=== PATIENT | female | born 1965 | race African-American/Black ===

== ENCOUNTER 2018-03-25 12:44 | Inpatient (IN) | payer OTHER ==
[2018-03-25] MEDS ORDERED: ACETAMINOPHEN 325 MG TABLET ONE (12:52)
[2018-03-25] MEDS ORDERED: NA CHLORIDE 0.9% 1,000 ML ONE ×2 (12:53→15:51)
[2018-03-25] MEDS ORDERED: ONDANSETRON 4 MG/2 ML VIAL ONE (12:53)
[2018-03-25 13:51] LABS: Bicarbonate 26 mEq/L (21-31); Glucose Level 122 mg/dL (65-120); Lipase 19 U/L (22-51); Potassium 3.9 mEq/L (3.6-5.0); Sodium Level 138 mEq/L (135-145)
[2018-03-25 13:56] LABS: ALT/SGPT 40 IU/L (10-60); AST/SGOT 42 IU/L (10-42); Albumin 4.3 g/dL (3.2-5.5); Alkaline Phosphatase 75 IU/L (42-121); BUN Blood Urea Nitrogen 12 mg/dL (6-20); Bilirubin Direct 0.1 mg/dL (0-0.2); Bilirubin Total 0.5 mg/dL (0.3-1.2); Magnesium 1.8 mg/dL (1.8-2.5); Protein, Total 7.8 g/dL (6.0-8.3)
--- NOTE | 2018-03-25 13:58 | RAD REPORT ---
EXAM DESCRIPTION: Rhett Single View03/25/2018 1:06 pm CLINICAL HISTORY: Cough COMPARISON: 2016 FINDINGS: The lungs appear clear of acute infiltrate. The heart is normal size IMPRESSION: No acute abnormalities displayed
[2018-03-25 14:20] LABS: Absolute Lymphocytes (CBC) 2.9 K/uL (0.7-4.9); Absolute Monocytes 1.1 K/uL (0.1-1.3); Absolute Neutrophil 11.9 K/uL (1.8-8.0); Basophils % 0.5 % (0-1.3); Eosinophils % 0.7 % (0-4.4); Hematocrit 40.2 % (36.0-45.0); Lymphocytes % 17.9 % (15.3-44.8); MCH 27.3 pg (27.0-35.0); MCV 84.6 fL (80-100); Monocytes % 6.6 % (3.3-12.3); RBC Red Blood Cell Count 4.75 M/uL (3.86-4.86)
[2018-03-25 14:26] LABS: Protime INR 1.03
[2018-03-25 15:04] LABS: Urine Blood 2+ (NEG); Urine Glucose NEGATIVE (NEG); Urine Protein NEGATIVE (NEG); Urine Specific Gravity 1.015 (1.005-1.030)
--- NOTE | 2018-03-25 15:44 | RAD REPORT ---
EXAM DESCRIPTION: CT - Stone Protocol - 03/25/2018 3:34 pm CLINICAL HISTORY: Abdominal pain. COMPARISON: None. TECHNIQUE: Computed axial tomography of the abdomen pelvis was obtained without oral or IV contrast. Lack of IV and oral contrast limits evaluation of solid organs, bowel, and vessels. Coronal reformat marlee images were obtained and reviewed. All CT scans are performed using dose optimization technique as appropriate and may include automated exposure control or mA/KV adjustment according to patient size. FINDINGS: A renal calculus is not seen. An ureteral calculus is not noted. A bladder calculus is not present. The liver, spleen, pancreas and adrenals appear grossly normal Diverticula stem from the colon without evidence of diverticulitis. The appendix appears normal A small umbilical hernia is present IMPRESSION: Negative for a genitourinary calculus
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
[2018-03-25] MEDS ORDERED: CEFTRIAXONE/SWI 1gm 1 GM/10 ML SYR ONE (16:35)
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
[2018-03-25] MEDS ORDERED: ONDANSETRON 4 MG/2 ML VIAL IV PRN (18:13)
[2018-03-25] MEDS ORDERED: ACETAMINOPHEN 500 MG TAB PO PRN (18:13)
[2018-03-25 18:22] VITALS: BMI 27.2
[2018-03-25] MEDS: NA CHLORIDE 0.9% 1,000 ML IV SCH (18:35)
[2018-03-25] MEDS: ENOXAPARIN 40 MG/0.4 ML SQ SCH (20:38)
[2018-03-25] MEDS ORDERED: TEMAZEPAM 15 MG CAP PO PRN (20:55)
[2018-03-25] MEDS ORDERED: HYDROCODONE/APAP 10/325 TAB PO ONE (20:55)
[2018-03-25 21:10] LABS: Urine Appearance CLEAR; Urine Bilirubin NEGATIVE (NEG); Urine Blood 1+ (NEG); Urine Color YELLOW; Urine Glucose NEGATIVE (NEG); Urine Protein NEGATIVE (NEG); Urine Urobilinogen 0.2 mg/dL (0.2-1.0); Urine pH 7.5 (5.0-7.0)
[2018-03-25 21:12] LABS: Urine Microscopic Reflex ORDER UMIC
[2018-03-25 21:28] LABS: Urine Bacteria <20 /HPF (<20); Urine Culture Reflex Order NOT NEEDED
[2018-03-25 21:42] LABS: Barbiturates NEGATIVE; Benzodiazepines NEGATIVE; Cocaine NEGATIVE; METHAMPHETAM NEGATIVE; Opiates NEGATIVE; Phencyclidine NEGATIVE; THC Cannibis NEGATIVE
[2018-03-26] MEDS: NA CHLORIDE 0.9% 1,000 ML IV SCH ×4 (03:22→18:48)
[2018-03-26 05:45] LABS: Absolute Lymphocytes (CBC) 1.7 K/uL (0.7-4.9); Absolute Neutrophil 8.3 K/uL (1.8-8.0); Basophils % 0.4 % (0-1.3); Eosinophils % 0.1 % (0-4.4); Hematocrit 33.8 % (36.0-45.0); Lymphocytes % 15.4 % (15.3-44.8); MCH 27.6 pg (27.0-35.0); MPV 7.3 fL (7.6-11.3); Monocytes % 9.1 % (3.3-12.3); RBC Red Blood Cell Count 4.03 M/uL (3.86-4.86)
[2018-03-26 06:54] LABS: BUN Blood Urea Nitrogen 8 mg/dL (6-20); Bicarbonate 27 mEq/L (21-31); Glucose Level 114 mg/dL (65-120); Magnesium 1.7 mg/dL (1.8-2.5); Potassium 3.3 mEq/L (3.6-5.0); Sodium Level 139 mEq/L (135-145)
--- NOTE | 2018-03-26 06:58 | EKG ---
Test Date: 2018-03-25 Test Time: 12:49:14 Demo Coordinator: CODIE MEASUREMENT RESULTS: Intervals: Rate: 128 AR: 150 QRSD: 66 QT: 298 QTc: 435 Martin: P: 52 AR: 150 QRS: -9 T: 37 INTERPRETIVE STATEMENTS: Sinus tachycardia Otherwise normal ECG Compared to ECG 05/26/2016 14:36:02 Sinus rhythm no longer present Electronically Signed On 03-26-18 06:58:14 CDT by Dean Burns
[2018-03-26] MEDS: IBUPROFEN 400 MG TAB PO PRN ×2 (08:29→14:18)
[2018-03-26] MEDS: PANTOPRAZOLE 40MG TABLET PO SCH (08:29)
[2018-03-26] MEDS: ENOXAPARIN 40 MG/0.4 ML SQ SCH (08:30)
[2018-03-26] MEDS: CEFTRIAXONE/SWI 1gm 1 GM/10 ML SYR IVP SCH (08:31)
[2018-03-26] MEDS ORDERED: MAGNESIUM SULFATE 1 gm IVPB 1 GM/100 ML BAG IV ONE (09:00)
[2018-03-26] MEDS ORDERED: POTASSIUM CL SA 10 MEQ TAB PO ONE ×2 (09:00→18:00)
--- NOTE | 2018-03-26 10:59 | ECHO ---
HEIGHT: 5 ft 2 in WEIGHT: 149 lb 0 oz DATE OF STUDY: 03/26/[address]: Cole Newman DO 2-DIMENSIONAL: YES M.MODE: YES DOPPLER: YES COLOR FLOW: YES TDS: NO PORTABLE: NO DEFINITY: NO BUBBLE STUDY: YES DIAGNOSIS: FEVER/SEPSIS CARDIAC HISTORY: CATHERIZATION: NO SURGERY: NO PROSTHETIC VALVE: NO PACEMAKER: NO MEASUREMENTS (cm) DIASTOLIC (NORMALS) SYSTOLIC (NORMALS) IVSd 1.1 (0.6-1.2) LA Diam 3.7 (1.9-4.0) LVEF 68% LVIDd 3.4 (3.5-5.7) LVIDs 2.1 (2.0-3.5) %FS 37% LVPWd 1.4 (0.6-1.2) Ao Diam 2.8 (2.0-3.7) 2 DIMENSIONAL ASSESSMENT: RIGHT ATRIUM: NORMAL LEFT ATRIUM: HYPERMOBILE INTERATRIAL SEPTUM RIGHT VENTRICLE: NORMAL LEFT VENTRICLE: NORMAL TRICUSPID VALVE: NORMAL MITRAL VALVE: NORMAL PULMONIC VALVE: NORMAL AORTIC VALVE: NORMAL PERICARDIAL EFFUSION: NONE AORTIC ROOT: NORMAL LEFT VENTRICULAR WALL MOTION: NORMAL. DOPPLER/COLOR FLOW: TRACE OF TRICUSPID REGURGITATION. NORMAL RIGHT VENTRICULAR SYSTOLIC PRESSURE. COMMENTS: A VERY SMALL ATRIAL SEPTAL DEFECT OR PATENT FORAMEN OVALE IS PRESENT WITH RIGHT TO LEFT SHUNT OTHERWISE NORMAL 2D ECHO. TRACE OF TRICUSPID REGURGITATION. NORMAL RIGHT VENTRICULAR SYSTOLIC PRESSURE. TECHNOLOGIST: ITZ PIERCE
--- NOTE | 2018-03-26 11:35 | P.PN ---
Subjective Date of Service: 03/26/18 Primary Care Provider: None Chief Complaint: Fever, nausea and vomiting Subjective: Improving (Patient improved. Still with some fatigue. Fever noted. Patient did have some nausea this morning. Mild headache.) Physical Examination - Vital Signs Temperature: 99.8 F Blood Pressure: 137/76 Pulse: 88 Respirations: 18 Pulse Ox (%): 96 - Physical Exam General: Alert, In no apparent distress, Oriented x3, Cooperative, Other (No nuchal rigidity. No vision problems.) HEENT: Atraumatic Neck: Supple Respiratory: Clear to auscultation bilaterally, Normal air movement Cardiovascular: Normal pulses, Regular rate/rhythm Gastrointestinal: Normal bowel sounds, Soft and benign, Non-distended, No tenderness, No masses, No rebound, No guarding Musculoskeletal: No erythema, No tenderness, No warmth Integumentary: No tenderness/swelling, No erythema, No warmth, No cyanosis Neurological: Normal speech, Normal strength at 5/5 x4 extr, Normal tone, Normal affect - Studies Laboratory Data (last 24 hrs) 03/25/18 13:00: PT 12.2, INR 1.03 03/25/18 13:00: WBC 16.0 H, Hgb 13.0, Hct 40.2, Plt Count 317 03/25/18 13:00: B-Natriuretic Peptide 42 03/25/18 13:00: Sodium 138, Potassium 3.9, BUN 12, Creatinine 0.77, Glucose 122 H, Magnesium 1.8, Total Bilirubin 0.5, AST 42, ALT 40, Alkaline Phosphatase 75, Lipase 19 L Microbiology Data (last 24 hrs): 03/25/18 13:00 Nasopharnyx Influenza Type A Antigen Screen - Final 03/25/18 13:00 Nasopharnyx Influenza Type B Antigen Screen - Final Medications List Reviewed: Yes Assessment & Plan - Problems (Diagnosis) (1) Fever Onset Date: 03/26/18 Current Visit: Yes Status: Acute Plan: Etiology of fever and leukocytosis unknown, this is likely viral in nature. Suspect upper respiratory with gastroenteritis. Will provide medication for nausea. Blood cultures obtained. Await results. Patient on antibiotic therapy empirically. Will continue with IV fluids and electrolyte replacement. Echocardiogram shows normal ejection fraction. It did show a small atrial septal defect. This can be further monitored as an outpatient by Cardiology. Will ambulate patient. Will continue to monitor closely Qualifiers: Fever type: unspecified Qualified Code(s): R50.9 - Fever, unspecified (2) Nausea and vomiting Onset Date: 03/26/18 Current Visit: Yes Status: Acute Plan: Will continue with medication. Will continue as above. Qualifiers: Vomiting type: unspecified Vomiting Intractability: unspecified Qualified Code(s): R11.2 - Nausea with vomiting, unspecified (3) Dehydration Onset Date: 03/26/18 Current Visit: Yes Status: Acute Plan: Will continue with fluids and and replace electrolytes (4) Leukocytosis Onset Date: 03/26/18 Current Visit: Yes Status: Acute Plan: Improved. Chest x-ray unremarkable, CT abdomen unremarkable. Blood cultures obtained. Patient on antibiotic therapy empirically. This is likely viral in nature. Will continue to monitor closely. Continue IV fluids. Anticipate discharge once the patient is without fever for at least 24-48 hr. Qualifiers: Leukocytosis type: unspecified Qualified Code(s): D72.829 - Elevated white blood cell count, unspecified (5) Viral illness Current Visit: Yes Status: Acute Plan: Suspect viral illness. Will continue with above plan of care. (6) Atrial septal defect Current Visit: Yes Status: Chronic Plan: Patient found to have small atrial septal defect. This can be followed up as an outpatient by Cardiology. (7) Hypokalemia Current Visit: Yes Status: Acute Plan: Will continue monitor and replace appropriately. Replacement protocol in place. (8) Hypomagnesemia Current Visit: Yes Status: Acute Plan: Will continue to monitor and replace appropriately. Replacement protocol in place. Discharge Plan: Home Plan to discharge in: 48 Hours Time Spent Managing Pts Care (In Minutes): 55
[2018-03-27] MEDS: NA CHLORIDE 0.9% 1,000 ML IV SCH ×2 (02:13→05:45)
[2018-03-27 05:11] LABS: Absolute Neutrophil 4.6 K/uL (1.8-8.0); Basophils % 0.3 % (0-1.3); Hematocrit 32.8 % (36.0-45.0); Lymphocytes % 25.2 % (15.3-44.8); MCH 27.6 pg (27.0-35.0); MCV 84.4 fL (80-100); MPV 8.1 fL (7.6-11.3); Monocytes % 12.5 % (3.3-12.3); RBC Red Blood Cell Count 3.89 M/uL (3.86-4.86)
[2018-03-27 05:30] LABS: BUN Blood Urea Nitrogen 8 mg/dL (6-20); Bicarbonate 27 mEq/L (21-31); Glucose Level 92 mg/dL (65-120); Magnesium 1.9 mg/dL (1.8-2.5); Sodium Level 141 mEq/L (135-145)
[2018-03-27] MEDS: ENOXAPARIN 40 MG/0.4 ML SQ SCH (08:13)
[2018-03-27] MEDS: CEFTRIAXONE/SWI 1gm 1 GM/10 ML SYR IVP SCH (08:15)
[2018-03-27] MEDS: PANTOPRAZOLE 40MG TABLET PO SCH (08:15)
--- NOTE | 2018-03-27 10:00 | P.PN ---
Subjective Date of Service: 03/27/18 Primary Care Provider: None Chief Complaint: Fever, nausea and vomiting Subjective: Improving Physical Examination - Vital Signs Temperature: 97.5 F Blood Pressure: 151/74 Pulse: 78 Respirations: 18 Pulse Ox (%): 96 - Physical Exam General: Alert, In no apparent distress, Oriented x3, Cooperative HEENT: Atraumatic Neck: Supple Respiratory: Clear to auscultation bilaterally, Normal air movement Cardiovascular: Normal pulses, Regular rate/rhythm Gastrointestinal: Normal bowel sounds, Soft and benign, Non-distended, No tenderness, No masses, No rebound, No guarding Musculoskeletal: No erythema, No tenderness, No warmth Integumentary: No tenderness/swelling, No erythema, No warmth, No cyanosis Neurological: Normal speech, Normal strength at 5/5 x4 extr, Normal tone, Normal affect - Studies Medications List Reviewed: Yes Assessment & Plan - Problems (Diagnosis) (1) Fever Onset Date: 03/26/18 Current Visit: Yes Status: Acute Plan: Etiology of fever and leukocytosis unknown, this is likely viral in nature. No fever for over 24 hr. Suspect upper respiratory with gastroenteritis. Patient improved. Will continue with IV fluids. Will advance diet. So far blood cultures negative. Echocardiogram shows normal ejection fraction. It did show a small atrial septal defect. This can be further monitored as an outpatient by Cardiology. Will ambulate patient. Will continue to monitor closely. Possible discharge later today if much improved. Qualifiers: Fever type: unspecified Qualified Code(s): R50.9 - Fever, unspecified (2) Nausea and vomiting Onset Date: 03/26/18 Current Visit: Yes Status: Acute Plan: Will continue with medication. Will continue as above. Qualifiers: Vomiting type: unspecified Vomiting Intractability: unspecified Qualified Code(s): R11.2 - Nausea with vomiting, unspecified (3) Dehydration Onset Date: 03/26/18 Current Visit: Yes Status: Acute Plan: Will continue with fluids and and replace electrolytes (4) Leukocytosis Onset Date: 03/26/18 Current Visit: Yes Status: Acute Plan: Improved. Chest x-ray unremarkable, CT abdomen unremarkable. Blood cultures obtained. Patient on antibiotic therapy empirically. This is likely viral in nature. Will continue to monitor closely. Continue IV fluids. Anticipate discharge once the patient is without fever for at least 24-48 hr. Qualifiers: Leukocytosis type: unspecified Qualified Code(s): D72.829 - Elevated white blood cell count, unspecified (5) Viral illness Current Visit: Yes Status: Acute Plan: Suspect viral illness. Will continue with above plan of care. (6) Atrial septal defect Current Visit: Yes Status: Chronic Plan: Patient found to have small atrial septal defect. This can be followed up as an outpatient by Cardiology. (7) Hypokalemia Current Visit: Yes Status: Acute Plan: Will continue monitor and replace appropriately. Replacement protocol in place. (8) Hypomagnesemia Current Visit: Yes Status: Acute Plan: Will continue to monitor and replace appropriately. Replacement protocol in place. Discharge Plan: Home Plan to discharge in: 24 Hours Time Spent Managing Pts Care (In Minutes): 55
[2018-03-27 20:35] VITALS: O2SAT 99
[2018-03-27] MEDS: IBUPROFEN 400 MG TAB PO PRN (23:57)
[2018-03-28 06:36] LABS: Absolute Lymphocytes (CBC) 1.9 K/uL (0.7-4.9); Absolute Monocytes 0.7 K/uL (0.1-1.3); Absolute Neutrophil 3.3 K/uL (1.8-8.0); Basophils % 0.3 % (0-1.3); Eosinophils % 5.8 % (0-4.4); Hematocrit 35.6 % (36.0-45.0); Lymphocytes % 30.5 % (15.3-44.8); MCV 83.8 fL (80-100); MPV 7.8 fL (7.6-11.3); Monocytes % 11.7 % (3.3-12.3); RBC Red Blood Cell Count 4.26 M/uL (3.86-4.86)
[2018-03-28 06:46] LABS: BUN Blood Urea Nitrogen 11 mg/dL (6-20); Bicarbonate 31 mEq/L (21-31); Glucose Level 98 mg/dL (65-120); Magnesium 1.9 mg/dL (1.8-2.5); Potassium 4.1 mEq/L (3.6-5.0); Sodium Level 143 mEq/L (135-145)
[2018-03-28] MEDS ORDERED: AMLODIPINE 5 MG TAB PO SCH (09:00)
[2018-03-28] MEDS: PANTOPRAZOLE 40MG TABLET PO SCH (09:38)
[2018-03-28] MEDS: CEFTRIAXONE/SWI 1gm 1 GM/10 ML SYR IVP SCH (09:43)
[2018-03-28] MEDS: ENOXAPARIN 40 MG/0.4 ML SQ SCH (09:43)
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
[2018-03-28 11:44] VITALS: BP 146/98; TEMP 98.5
== END 2018-03-28 15:41 | disposition home or self-care (01) | DRG 866 ==
LOC: ER 12:44 → ERHOLD 16:06 → 4TH 17:37
PROVIDERS: ADMIT Family Medicine; ATTEND Family Medicine
DX: B34.9 Viral infection, unspecified (principal); Q21.1 Atrial septal defect; J06.9 Acute upper respiratory infection, unspecified; I10 Essential (primary) hypertension; E86.0 Dehydration; D72.829 Elevated white blood cell count, unspecified; E87.6 Hypokalemia; E83.42 Hypomagnesemia; R00.0 Tachycardia, unspecified; K52.9 Noninfective gastroenteritis and colitis, unspecified
CPT/HCPCS: 36415; 71045; 74176; 76377; 80048; 80076; 80307; 81003; 81015; 82550; 83605; 83690; 83735; 83880; 84132; 84145; 84439; 84443; 84484; 85025; 85610; 87040; 87070; 87081; 87804; 93005; 93306; 96361; 96374; 96375; 97163; 99285; J0696; J1650; J2405; J3475; J7030